=== PATIENT | female | born 1940 | race Caucasian/White ===

== ENCOUNTER → 2016-07-27 | Outpatient (CLI) | payer OTHER, MEDICARE ==
[2016-07-27 15:12] LABS: BASOPHILS # (AUTO) 0.04 10*3/UL; BASOPHILS % (AUTO) 0.7 % (0-1); EOSINOPHILS % (AUTO) 2.7 % (0-8); HEMATOCRIT 41.6 % (37.0-47.0); HEMOGLOBIN 13.8 g/dL (12.0-16.0); IMM GRAN % (AUTO) 0.2 % (0-5); IMM GRAN# (AUTO) 0.01 10*3/UL; LYMPHOCYTES # (AUTO) 1.64 10*3/uL; LYMPHOCYTES % (AUTO) 28.2 % (10-50); MEAN CORPUSCULAR HEMOGLOBIN 29.1 PG (27-31); MEAN CORPUSCULAR HGB CONC 33.2 g/dL (33-37); MEAN PLATELET VOLUME 10.2 FL (7.4-12.2); MONOCYTES # (AUTO) 0.54 10*3/UL (0.3-0.8); MONOCYTES % (AUTO) 9.3 % (5-15); NEUTROPHILS # (AUTO) 3.43 10*3/UL; NEUTROPHILS % (AUTO) 58.9 % (50-80); RDW COEFFICIENT OF VARIATION 14.3 % (11.5-14.5); RED BLOOD COUNT 4.75 10^6/uL (4.20-5.40); WHITE BLOOD COUNT 5.82 10^3/uL (4.8-10.8)
[2016-07-27 15:14] LABS: PLATELET MORPHOLOGY COMMENT NORMAL MORPHOLOGY (NORM)
[2016-07-27 15:20] LABS: HEMOGLOBIN A1C 5.87 % (4.2-6.0); MEAN BLOOD GLUCOSE (CALC) 109.471 mg/dL
[2016-07-27 15:25] LABS: BILIRUBIN,TOTAL 1.8 mg/dL (0.3-1.2); C-REACTIVE PROTEIN 0.5 mg/dL (0.0-0.9); TOTAL PROTEIN 7.8 g/dL (6.1-8.0)
--- NOTE | 2016-07-28 19:43 | DI ---
LUMBAR SPINE SERIES, 07/27/2016 2:49 PM: Clinical History: Low back pain. Previous Exam: None at this facility. 4 routine upright views are submitted. The vertebral bodies are of normal height and size. Severe dis c space narrowing is present at L3-4 and L5-S1 and the remaining disc spaces are of normal height. De generative arthritic changes are present in the apophyseal joints at all levels but most severely bet ween L3-4 and L5-S1. The pedicles and remaining posterior elements are normal. Both SI joints are nor mal. The abdominal aorta is heavily calcified but has a normal caliber. Reading: Chronic disc space narrowing is present at L3-4 and L5-S1 with severe arthritic changes in the apophy seal joints bilaterally between L3-4 and L5-S1.
--- NOTE | 2016-08-01 09:05 | DI ---
CERVICAL SPINE SERIES, 07/27/2016 2:49 PM: Clinical History: Back pain. Previous Exam: None at this facility. 5 routine upright views are submitted. The vertebral bodies are normal in height and size. The C7-T1 disc space is not optimally visualized on the lateral view of this study. If there are symptoms refer able to the C7-T1 level, then a repeat lateral view or a lateral swimmer's view would be recommended. There is moderately severe C2-3 disc space narrowing and severe narrowing with anterior and posterio r proliferative change from C3-4 through C6-7. Degenerative arthritic changes are present all of the uncovertebral joints bilaterally with degenerative change in the zygapophyseal joints bilaterally at C2-3. Mild to moderate bilateral neural foraminal stenosis is present from C3-4 through C6-7 secondar y to bony proliferative change. Posterior alignment is normal. C1 articulates normally with C2 and th e occiput. Prevertebral soft tissue planes are normal. Readin. Diffuse disc space narrowing is present from C2-3 through C6-7. The C7-T1 disc space is not optim ally visualized on this study. If there are symptoms referable to this level, then either a repeat la teral view or a lateral swimmer's view would be recommended. 2. There is bilateral mild to moderate neural foraminal stenosis from C3-4 through C6-7 secondary to bony proliferative change with arthritic changes bilaterally in the uncovertebral joints at all leve ls. Arthritic changes are present in the zygapophyseal joints bilaterally at C2-3.
== END ==
LOC: LAB 15:00
PROVIDERS: ATTEND Internal Medicine
DX: R73.9 Hyperglycemia, unspecified (principal); D69.6 Thrombocytopenia, unspecified; E03.9 Hypothyroidism, unspecified; I10 Essential (primary) hypertension; M62.838 Other muscle spasm; R16.1 Splenomegaly, not elsewhere classified; K76.0 Fatty (change of) liver, not elsewhere classified; M54.5 Low back pain; M54.2 Cervicalgia
CPT/HCPCS: 36415; 72050; 72110; 80076; 83036; 84443; 85025; 85652; 86140

== ENCOUNTER → 2016-08-11 | Outpatient (CLI) | payer OTHER, MEDICARE | LOC: MMPC 09:00 | PROVIDERS: ATTEND Physician Assistant | DX: M47.22 Other spondylosis with radiculopathy, cervical region (principal); M47.26 Other spondylosis with radiculopathy, lumbar region | CPT/HCPCS: 99214 ==

== ENCOUNTER → 2016-08-18 | Outpatient (CLI) | payer OTHER, MEDICARE ==
--- NOTE | 2016-08-18 10:12 | DI ---
MRI CERVICAL SPINE W/O CN,08/18/2016 8:55 AM: Clinical History: Cervical spondylosis with radiculopathy. Previous Exam: None at this facility. Findings: Multiplanar MR images are obtained through the cervical spine without contrast. Bony alignment is anatomic. No fractures are seen. Marrow signal is preserved. Posterior elements are unremarkable. The base of the skull is unremarkable. The posterior fossa is normal. The cervical spine is also normal. There is normal. Vertebral soft tis sues. Individual intervertebral disc spaces: C2/C3: No significant stenosis. C3/4: There is disc desiccation, broad-based disc bulge and uncovertebral joint osteophytes contribut ing to mild bilateral neural foraminal narrowing without significant central canal stenosis. C4/5: There is disc desiccation, annular fissuring and a broad-based disc bulge combining with some m ild facet hypertrophy and some uncovertebral joint osteophytes contributing to mild to moderate bilat eral neuroforaminal narrowing and mild central canal stenosis. C5/6: There is disc desiccation, uncovertebral joint osteophytes and some facet hypertrophy contribut ing to mild to moderate central canal stenosis causing mild to moderate bilateral neural foraminal na rrowing. C6/7: There is disc desiccation, uncovertebral joint osteophyte formation and a broad-based disc bulg e with some mild facet hypertrophy contributing to moderate left and mild right neuroforaminal narrow ing. C7/T1: There is mild left-sided neural foraminal narrowing due to some uncovertebral joint osteophyte s. There is no central canal stenosis. Other visualized portions of the upper thoracic spine are unre markable. Impression: C3/4: There is disc desiccation, broad-based disc bulge and uncovertebral joint osteophytes contribut ing to mild bilateral neural foraminal narrowing without significant central canal stenosis. C4/5: There is disc desiccation, annular fissuring and a broad-based disc bulge combining with some m ild facet hypertrophy and some uncovertebral joint osteophytes contributing to mild to moderate bilat eral neuroforaminal narrowing and mild central canal stenosis. C5/6: There is disc desiccation, uncovertebral joint osteophytes and some facet hypertrophy contribut ing to mild to moderate central canal stenosis causing mild to moderate bilateral neural foraminal na rrowing. C6/7: There is disc desiccation, uncovertebral joint osteophyte formation and a broad-based disc bulg e with some mild facet hypertrophy contributing to moderate left and mild right neuroforaminal narrow ing. C7/T1: There is mild left-sided neural foraminal narrowing due to some uncovertebral joint osteophyte s. There is no central canal stenosis. Other visualized portions of the upper thoracic spine are unre markable.
== END ==
LOC: MRI 08:43
PROVIDERS: ATTEND Neurological Surgery
DX: M47.22 Other spondylosis with radiculopathy, cervical region (principal); M50.11 Cervical disc disorder with radiculopathy, high cervical region; M50.121 Cervical disc disorder at C4-C5 level with radiculopathy; M50.122 Cervical disc disorder at C5-C6 level with radiculopathy; M50.123 Cervical disc disorder at C6-C7 level with radiculopathy; M47.813 Spondylosis without myelopathy or radiculopathy, cervicothoracic region
CPT/HCPCS: 72141

== ENCOUNTER → 2016-08-19 | Outpatient (CLI) | payer OTHER, MEDICARE ==
--- NOTE | 2016-08-19 17:00 | DI ---
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 Previous Exam: None at this facility. Findings: Multiplanar MR images are obtained through the lumbar spine without contrast. Bony alignment is anatomic. No fractures are seen. There is some mild marrow edema involving the T12 and L1 endplates. The spinal cord descends normally with a normal conus at the L1 level. The posterior elements are unremarkable. The paraspinal musculature is also unremarkable. Limited evaluation of the kidneys is normal. Subcutaneous fat is unremarkable. There is no evidence of osteolysis nor spondylolisthesis. Individual intervertebral disc spaces: L1/2: No significant stenosis. L2/3: There is mild disc desiccation with some facet and ligamentum flavum hypertrophy without signif icant stenosis. L3/4: There is near complete loss of intervertebral disc height with disc desiccation and annular fis suring. There is some facet and ligamentum flavum hypertrophy contributing to mild bilateral neural f oraminal narrowing. L4/5: There is disc desiccation, annular fissuring and a small broad-based disc bulge combining with facet and ligamentum flavum hypertrophy to cause minimal left neural foraminal narrowing. L5/S1: There is disc desiccation and a broad-based disc bulge with some facet and ligamentum flavum h ypertrophy causing mild left neural foraminal narrowing. Impression: L2/3: There is mild disc desiccation with some facet and ligamentum flavum hypertrophy without signif icant stenosis. L3/4: There is near complete loss of intervertebral disc height with disc desiccation and annular fis suring. There is some facet and ligamentum flavum hypertrophy contributing to mild bilateral neural f oraminal narrowing. L4/5: There is disc desiccation, annular fissuring and a small broad-based disc bulge combining with facet and ligamentum flavum hypertrophy to cause minimal left neural foraminal narrowing. L5/S1: There is disc desiccation and a broad-based disc bulge with some facet and ligamentum flavum h ypertrophy causing mild left neural foraminal narrowing.
== END ==
LOC: MRI 12:55
PROVIDERS: ATTEND Neurological Surgery
DX: M47.26 Other spondylosis with radiculopathy, lumbar region (principal); M51.16 Intervertebral disc disorders with radiculopathy, lumbar region; M51.17 Intervertebral disc disorders with radiculopathy, lumbosacral region
CPT/HCPCS: 72148

== ENCOUNTER → 2016-09-01 | Outpatient (CLI) | payer OTHER, MEDICARE ==
--- NOTE | 2016-09-02 10:31 | DI ---
CT CERVICAL SPINE SCAN, 09/01/2016 9:13 AM : Clinical History: Cervical spondylosis with radiculopathy. Previous Exam: None at this facility. Scans are performed from the mid body of T2 to the base of the skull without IV contrast. Sagittal an d coronal reformatted images are generated. Curved coronal reformatted images and axial reformatted i mages angled through the disc spaces are also performed. The vertebral bodies are of normal height and size. There is severe disc space narrowing at every cer vical disc space level. No fractures are identified. Posterior alignment is normal. Moderate arthriti c changes are present in all of the zygapophyseal joints bilaterally and there are arthritic changes in the articulations between C1 and C2 as well as C1 and the occiput. Arthritic changes are present i n the uncovertebral joints bilaterally between C3-4 through C6-7. Prevertebral soft tissue planes are normal. The C2-3 disc space is normal. C3-4 has a focal central bulging but not herniated disc without canal or neural foraminal stenosis. C4-5 and C5-6 have mild central bulging but not herniated discs without canal stenosis. There is bilateral neural foraminal stenosis at both levels. C6-7 has bilateral neur al foraminal stenosis. There is no canal stenosis or definite disc bulge or herniation. The lower dis c spaces are obscured by artifacts. There is a low-density nonfunctioning nodule in the lower pole of the left lobe of the thyroid gland. This has previously been worked up with thyroid ultrasound and fine needle aspiration. READIN. Chronic disc space narrowing is present at every level down to C7-T1. Arthritic changes are prese nt in the uncovertebral joints bilaterally between C3-4 through C6-7 as well as in the zygapophyseal joints bilaterally between C2-3 and C7-T1. Arthritic changes are also present between C1 and the occi put. 2. There are bulging but not herniated discs without canal stenosis at C3-4 through C5-6. There is n o neural foraminal stenosis at C3-4 but there is bilateral neural foraminal stenosis at C4-5 and C5-6 . 3. There is no bulging disc or canal stenosis at C6-7, but there is bilateral neural foraminal steno sis. 4. The C2-3 disc space is normal. 5. Nonfunctioning thyroid nodule in the lower pole of the left lobe of the thyroid gland. This has p reviously been evaluated.
== END ==
LOC: CT 09:07
PROVIDERS: ATTEND Neurological Surgery
DX: M47.22 Other spondylosis with radiculopathy, cervical region (principal); M48.02 Spinal stenosis, cervical region
CPT/HCPCS: 72125

== ENCOUNTER → 2016-10-05 | Outpatient (CLI) | payer OTHER, MEDICARE ==
--- NOTE | 2016-10-06 09:27 | DI ---
THYROID ULTRASOUND, 10/05/2016 10:58 AM Clinical History: Left lobe thyroid nodule. Previous Exam: 04/04/2016. Scans are performed through both lobes of the thyroid gland in multiple projections with the high res olution linear array probe. Color Doppler ultrasound is also performed. The right lobe of the thyroid gland is of normal size. There is enlargement of the left lobe secondar y to an inhomogeneous almost circular mass in the lower pole. The right and left lobes measure 15 x 1 5 x 36 mm, and 18 x 25 x 42 mm, in the AP, transverse, and longitudinal dimensions, respectively. The inhomogeneous mass in the mid and lower pole of the left lobe of the thyroid gland measures approxim ately 18 x 18 x 27 mm. There is vascularity along the perimeter of the lesion. On the previous exam, the lesion measured 18 x 20 x 30 mm and this is still within interoperator variability in measurement s. Readin. There is a solid inhomogeneous nodule in the left lobe of the thyroid gland that has not changed in size or appearance since the previous study. 2. The right lobe of the thyroid gland and the isthmus are normal.
== END ==
LOC: US 10:52
PROVIDERS: ATTEND Surgery
DX: E04.1 Nontoxic single thyroid nodule (principal)
CPT/HCPCS: 76536

== ENCOUNTER → 2016-10-11 | Outpatient (CLI) | payer OTHER, MEDICARE | LOC: MMPC 11:11 | PROVIDERS: ATTEND Surgery | DX: E04.1 Nontoxic single thyroid nodule (principal) | CPT/HCPCS: 99213; G0463 ==

== ENCOUNTER → 2016-10-20 | Outpatient (CLI) | payer OTHER, MEDICARE | LOC: MMPC 10:00 | PROVIDERS: ATTEND Neurological Surgery | DX: M47.22 Other spondylosis with radiculopathy, cervical region (principal) | CPT/HCPCS: 99212; G0463 ==

== ENCOUNTER → 2016-12-22 | Outpatient (CLI) | payer OTHER, MEDICARE ==
[2016-12-22 19:45] LABS: HEMATOCRIT 42.4 % (37.0-47.0); HEMOGLOBIN 14.2 g/dL (12.0-16.0); MEAN CORPUSCULAR HEMOGLOBIN 29.3 PG (27-31); MEAN CORPUSCULAR HGB CONC 33.5 g/dL (33-37); MEAN CORPUSCULAR VOLUME 87.4 FL (81-99); MEAN PLATELET VOLUME 12.5 FL (7.4-12.2); RED BLOOD COUNT 4.85 10^6/uL (4.20-5.40)
[2016-12-22 19:51] LABS: CALCIUM 9.5 mg/dL (8.7-10.7); SERUM ALBUMIN 4.6 g/dL (3.5-4.8)
== END ==
LOC: LAB 11:37
PROVIDERS: ATTEND Internal Medicine Gastroenterology
DX: R19.7 Diarrhea, unspecified (principal); R19.4 Change in bowel habit
CPT/HCPCS: 80053; 85027

== ENCOUNTER → 2017-01-23 | Outpatient (CLI) | payer OTHER, MEDICARE ==
[2017-01-23 17:57] LABS: CALCIUM 9.7 mg/dL (8.7-10.7); SERUM ALBUMIN 4.4 g/dL (3.5-4.8)
[2017-01-23 18:05] LABS: HEMATOCRIT 41.4 % (37.0-47.0); MEAN CORPUSCULAR HEMOGLOBIN 29.1 PG (27-31); MEAN CORPUSCULAR HGB CONC 33.8 g/dL (33-37); MEAN CORPUSCULAR VOLUME 86.1 FL (81-99); MEAN PLATELET VOLUME 11.6 FL (7.4-12.2); RED BLOOD COUNT 4.81 10^6/uL (4.20-5.40)
== END ==
LOC: LAB 08:20
PROVIDERS: ATTEND Internal Medicine Gastroenterology
DX: C15.9 Malignant neoplasm of esophagus, unspecified (principal); K44.9 Diaphragmatic hernia without obstruction or gangrene; R13.19 Other dysphagia
CPT/HCPCS: 80053; 85027